=== PATIENT | male | born 1995 | race Caucasian/White ===

== ENCOUNTER 2018-04-13 08:57 | Emergency (ER) | payer OTHER ==
[~2018-04-13] VITALS: Ht 167.6 cm; Wt 61.4 kg
[2018-04-13 08:58] VITALS: TEMP 98.3
[2018-04-13 09:19] LABS: BASO % 0.5 % (0.0-2.0); EOS # 0.1 (0.0-0.7); EOS % 1.7 % (0-4.0); GRAN # 2.1 (1.4-6.5); GRAN % 50.6 % (42.2-75.2); HEMATOCRIT 39.6 % (42.0-52.0); HEMOGLOBIN 13.2 g/dl (13.5-18.0); LYMPH # 1.6 (1.2-3.4); LYMPH % 38.3 % (20.0-51.0); MEAN CELL VOLUME 85 fl (80.0-100.0); MEAN CORPUSCULAR HEMOGLOBIN 28 pg (27.0-31.0); MEAN CORPUSCULAR HGB CONC 33 g/dl (33.0-37.0); MEAN PLATELET VOLUME 10.2 fl (7.4-10.4); MONO # 0.4 (0.1-0.6); MONO % 8.7 % (1.7-9.3); PLATELET COUNT 200 K/mm3 (130-400); RED BLOOD COUNT 4.66 M/mm3 (4.20-5.60); REDCELL DISTRIBUTION WIDTH-CV 12.7 % (11.5-14.5)
[2018-04-13 09:33] LABS: ALANINE AMINOTRANSFERASE 21 U/L (21-72); ALBUMIN 4.1 gm/dL (3.5-5.0); ALKALINE PHOSPHATASE 54 U/L (50-136); ANION GAP 8 mmol/L (7-16); AST,SGOT 17 U/L (15-37); BILIRUBIN,TOTAL 0.4 mg/dL (0.0-1.0); BLOOD UREA NITROGEN 16 mg/dL (9-20); CALCIUM 9.3 mg/dL (8.4-10.2); CARBON DIOXIDE 26 mmol/L (22-30); CHLORIDE 106 mmol/L (98-107); GLUCOSE 88 mg/dL (74-106); POTASSIUM 4.6 mmol/L (3.4-5.0); SODIUM 140 mmol/L (137-145); TOTAL PROTEIN 6.8 gm/dL (6.4-8.2)
[2018-04-13 09:47] LABS: TROPONIN-I < 0.012 ng/mL (0.000-0.035)
[2018-04-13] MEDS ORDERED: PRILOSEC 20MG20 MG PO (10:11)
[2018-04-13 10:15] VITALS: BP 110/71; PULSE 51
== END 2018-04-13 10:23 | disposition home or self-care (01) ==
LOC: COL.ER 08:57
PROVIDERS: Physician Assistant
DX: R07.89 Other chest pain (principal); F17.220 Nicotine dependence, chewing tobacco, uncomplicated; Z90.89 Acquired absence of other organs

== ENCOUNTER 2018-07-24 20:45 | Emergency (ER) | payer OTHER ==
[~2018-07-24] VITALS: Ht 167.6 cm; Wt 61.4 kg
[~2018-07-24 20:45] MED LIST: PRILOSEC 20MG20 MG PO
[2018-07-24 20:57] VITALS: BP 122/67; TEMP 98.7
[2018-07-24] MEDS ORDERED: AMOXICILLIN 50500 MG PO (22:17)
[2018-07-24 23:08] VITALS: PULSE 58
== END 2018-07-24 22:47 | disposition home or self-care (01) ==
LOC: COL.ER 20:45
DX: H66.001 Acute suppurative otitis media without spontaneous rupture of ear drum, right ear (principal)

== ENCOUNTER 2018-09-25 12:59 | Emergency (ER) | payer OTHER ==
[~2018-09-25] VITALS: Ht 170.2 cm; Wt 59.1 kg
[~2018-09-25 12:59] MED LIST changes: +AMOXICILLIN 50500 MG PO
[2018-09-25 13:09] VITALS: TEMP 97.6
[2018-09-25 13:47] LABS: COLLECTION METHOD CLEAN CATCH
[2018-09-25 13:51] LABS: BASO % 0.3 % (0.0-2.0); EOS % 0.4 % (0-4.0); GRAN # 6.9 (1.4-6.5); GRAN % 75.4 % (42.2-75.2); HEMATOCRIT 44.2 % (42.0-52.0); LYMPH # 1.7 (1.2-3.4); LYMPH % 18.9 % (20.0-51.0); MEAN CELL VOLUME 84 fl (80.0-100.0); MEAN CORPUSCULAR HEMOGLOBIN 29 pg (27.0-31.0); MEAN CORPUSCULAR HGB CONC 34 g/dl (33.0-37.0); MEAN PLATELET VOLUME 10.9 fl (7.4-10.4); MONO # 0.4 (0.1-0.6); MONO % 4.6 % (1.7-9.3); PLATELET COUNT 252 K/mm3 (130-400); RED BLOOD COUNT 5.26 M/mm3 (4.20-5.60); REDCELL DISTRIBUTION WIDTH-CV 12.5 % (11.5-14.5)
[2018-09-25 14:02] LABS: ALANINE AMINOTRANSFERASE 10 U/L (21-72); ALBUMIN 4.9 gm/dL (3.5-5.0); ALKALINE PHOSPHATASE 59 U/L (50-136); ANION GAP 12 mmol/L (7-16); AST,SGOT 21 U/L (15-37); BILIRUBIN,TOTAL 0.8 mg/dL (0.0-1.0); BLOOD UREA NITROGEN 16 mg/dL (9-20); CALCIUM 10.2 mg/dL (8.4-10.2); CARBON DIOXIDE 24 mmol/L (22-30); CHLORIDE 105 mmol/L (98-107); GLUCOSE 93 mg/dL (74-106); POTASSIUM 4.4 mmol/L (3.4-5.0); SODIUM 142 mmol/L (137-145); TOTAL PROTEIN 8.1 gm/dL (6.4-8.2)
[2018-09-25 14:03] LABS: C-REACTIVE PROTEIN < 0.5 mg/dL (0.0-0.9)
[2018-09-25 14:13] LABS: MUCOUS Present /lpf; PH 5 (5-8); SQUAMOUS EPITHELIAL 0-2 /hpf; URINE APPEARANCE Clear; URINE BACTERIA None Seen /hpf; URINE BILIRUBIN Negative (NEGATIVE); URINE BLOOD Negative (NEGATIVE); URINE COLOR Yellow; URINE GLUCOSE Negative (NEGATIVE); URINE KETONE Negative (NEGATIVE); URINE LEUKOCYTE ESTERASE Negative (NEGATIVE); URINE NITRATE Negative (NEGATIVE); URINE PROTEIN(semi-quant) Negative (NEGATIVE); URINE RBC 0-2 /hpf; URINE UROBILINOGEN Negative (NEGATIVE)
[2018-09-25] MEDS ORDERED: ZOFRAN ODT4 MG PO (14:14)
[2018-09-25 14:45] VITALS: BP 112/66; PULSE 78
== END 2018-09-25 14:46 | disposition home or self-care (01) ==
LOC: COL.ER 12:59
PROVIDERS: Physician Assistant
DX: R11.10 Vomiting, unspecified (principal); F41.9 Anxiety disorder, unspecified; F17.220 Nicotine dependence, chewing tobacco, uncomplicated; Z90.49 Acquired absence of other specified parts of digestive tract
CPT/HCPCS: J2405; J7030